=== PATIENT | male | born 1950 | race Caucasian/White ===

== ENCOUNTER 2017-03-22 16:15 | Outpatient (CLI) | payer MEDICARE ==
--- NOTE | 2017-03-22 21:38 | RAD ---
CHEST TWO VIEWS 03/22/17 Comparison is made with an 10/20/15 study. No infiltrate, effusion, or pulmonary edema was seen. There are no focal findings of concern in the l ungs. The heart is normal in size. Slight compression of one mid thoracic vertebra is an old finding and unchanged from 2016. IMPRESSION: No acute findings. POS: HOME
== END 2017-03-22 16:16 | disposition home or self-care (01) ==
LOC: BURRAD 16:15
DX: R05 Cough (principal)
CPT/HCPCS: 71046

== ENCOUNTER 2020-12-23 17:00 | Outpatient (CLI) | payer MEDICARE | END 2020-12-23 17:01 | disposition home or self-care (01) | LOC: BURRAD 17:00 | PROVIDERS: ATTEND Family Medicine | DX: J44.1 Chronic obstructive pulmonary disease with (acute) exacerbation (principal) | CPT/HCPCS: 71046 ==

== ENCOUNTER 2021-01-31 16:46 | Outpatient (CLI) | payer MEDICARE | END 2021-01-31 16:47 | disposition home or self-care (01) | LOC: BURRAD 16:46 | PROVIDERS: ATTEND Family Medicine | DX: B34.9 Viral infection, unspecified (principal); J44.9 Chronic obstructive pulmonary disease, unspecified; J98.4 Other disorders of lung | CPT/HCPCS: 71046 ==

== ENCOUNTER 2021-02-09 09:55 | Outpatient (CLI) | payer MEDICARE | END 2021-02-09 09:56 | disposition home or self-care (01) | LOC: BURCT 09:55 | PROVIDERS: ATTEND Family Medicine | DX: Z01.818 Encounter for other preprocedural examination (principal); R91.1 Solitary pulmonary nodule; R91.8 Other nonspecific abnormal finding of lung field | CPT/HCPCS: 36415; 71260; 82565 ==

== ENCOUNTER 2022-12-15 11:13 | Outpatient (CLI) | payer MEDICARE | END 2022-12-15 11:14 | disposition home or self-care (01) | LOC: BURRAD 11:13 | PROVIDERS: ATTEND Family Medicine | DX: S39.012A Strain of muscle, fascia and tendon of lower back, initial encounter (principal); M47.816 Spondylosis without myelopathy or radiculopathy, lumbar region | CPT/HCPCS: 72110 ==